=== PATIENT | female | born 1995 | race Caucasian/White ===

== ENCOUNTER 2018-08-26 21:16 | Emergency (ER) | payer OTHER ==
[2018-08-26] MEDS ORDERED: HALOPERIDOL LACT 5 MG/ML INJ ONE (21:19)
--- NOTE | 2018-08-26 21:24 | EDPHY ---
H & P Source: Patient Exam Limitations: No limitations - Medical/Surgical History Hx Asthma: No Hx Chronic Respiratory Disease: No Hx Diabetes: No Hx Cardiac Disease: No Hx Renal Disease: No Hx Cirrhosis: No Hx Alcoholism: No Hx HIV/AIDS: No Hx Splenectomy or Spleen Trauma: No Other PMH: DENIES - Family History Significant Family History: No pertinent family hx - Social History Smoking Status: Never smoked Alcohol Use: Heavy Time Seen by Provider: 08/26/18 21:19 HPI/ROS: CHIEF COMPLAINT: Walking into traffic HISTORY OF PRESENT ILLNESS: The patient is a 22-year-old female whose friends called police because she was trying to walk into traffic in an effort to kill herself. They report that she has done this before. She has been drinking heavily tonight. We do not know any other past medical history at this point. Severity: Severe Modifying factors: Alcohol REVIEW OF SYSTEMS: Unable to answer questions appropriately EXAM: GENERAL: Screaming, combative, not cooperative HEAD: Atraumatic, normocephalic. EYES: Pupils equal round and reactive to light, extraocular movements intact, sclera anicteric, conjunctiva are normal. ENT: TMs normal, nares patent, oropharynx clear without exudates. Moist mucous membranes. NECK: Normal range of motion, supple without lymphadenopathy or JVD. LUNGS: Breath sounds clear to auscultation bilaterally and equal. No wheezes rales or rhonchi. HEART: Normal pulses. ABDOMEN: Soft, nontender, normoactive bowel sounds. No guarding, no rebound. No masses appreciated. BACK: No CVA tenderness, no spinal tenderness, step-offs or deformities EXTREMITIES: Normal range of motion, no pitting or edema. No clubbing or cyanosis. NEUROLOGICAL: Moving all extremities, eating to be restrained PSYCH: Combative, screaming SKIN: Warm, dry, normal turgor, no visible rashes or lesions. (Adi Salazar) Constitutional: Initial Vital Signs Temperature (C) 36.9 C 08/26/18 21:37 Heart Rate 120 H 08/26/18 21:37 Respiratory Rate 20 08/26/18 21:37 Blood Pressure 109/66 08/26/18 21:37 O2 Sat (%) 94 08/26/18 21:37 O2 Delivery Mode Room Air Allergies/Adverse Reactions: No Known Allergies Allergy (Unverified 09/28/16 22:42) Home Medications: Medication Instructions Recorded NK [No Known Home Meds] 09/28/16 Medical Decision Making ED Course/Re-evaluation: 9:40 p.m. the patient was given Haldol and is now sleeping comfortably. (Adi Salazar) 0637: No acute events overnight. Patient has been sleeping. Needs mental health evaluation. (Hu Sanches) 3:00 p.m.-I assumed care of this patient at shift change. She presents with suicidal ideation and the plan is for her to go to [facility]. (Alexandria Garcia) Other Provider: Assumed care of the patient from Dr. Sanches at 7:15 a.m.. Patient is medically clear and awaiting evaluation. Patient seen and evaluated by mental health. They are seeking placement. Advised by [facility] at 3:30 p.m. They are hopeful the patient can be placed [facility]. Patient's care will be assumed by Dr. Alexandria Garcia at 4:00 p.m. Advised by that accepting physician has been identified at [facility]. Transfer paperwork signed by myself. (Angie Palma) - Data Points Laboratory Results: Laboratory Results 08/26/18 22:30 08/26/18 22:30 Medications Given: Discontinued Medications Haloperidol Lactate (Haldol Injection) 10 mg IM EDNOW ONE Stop: 08/26/18 23:04 Last Admin: 08/26/18 21:15 Dose: 10 mg Departure - Departure Disposition: Other Psych, Not Juan C Clinical Impression: Suicidal ideation Condition: Fair Referrals: Patient,NotPresent [Primary Care Provider] - As per Instructions
[2018-08-26 22:44] LABS: PLATELET COUNT 231 10^3/uL (150-400)
[2018-08-26] MEDS ORDERED: HALOPERIDOL LACT 5 MG/ML INJ IM ONE (23:03)
--- NOTE | 2018-08-27 14:04 | ASMTTLCEVL ---
TLC Evaluation - Basic Information Evaluation Start Date and 08/27/2018 12:50 PM Time Hospital Status Answers: M1 Hold 72-hr M1 Hold Start Date 08/26/2018 08:40 PM and Time Patient statement Notes: "I don't remember". Narrative Notes: Pt is a 22 y/o, female college student brought in on an M1 hold. Per M1, "pt was attempting to jump out into traffic to kill herself. Pt's friends were struggling with her holding her out of traffic until officers arrived. Pt did not say anything about the incident. Pt continuously fought and struggled with officers. With the clinician Pt presented with a flat affect and an overly compliant and cooperative behavior. Pt responded to all questions in a linear and logical manner, but was vague and guarded. Her last memory of yesterday was that she was in a good mood, had 4 drinks and was on her way to the football game with friends. She describes herself as having depression, "it comes and goes". It appears that this depression may extend back to middle school, when she began to cut and went to family therapy, however she was unwilling to give any details of that time. When asked abou present triggers she recalls a year of large stressors. Pt's father, who lives in [place] was diagnosed with Lupus last year; he has had 2 heart surgeries. He owns a business and there have been financial consequences to his illness. Pt's grandmother who was paying her tuition, stopped contributing this past November; pt stated that she didn't know why. This past January she and several friends at her sorority were "turned in" for drinking. There were multiple consequences and the remainder of her time there was unpleasant with her believing people were judging her behaviors. This summer, pt was drunk and in the car with her mother, when she tried to jump out attempting suicide.Pt now has a job and kath extra commitment and her lessening of free time is stressful. Pt describes herself as sleeping 8 ours a night and of having a small appetite, "I've lost weight over the last month". She is attending her classes and turning in assignments on time, but it "is probablly not my best work". Overall she is enjoying things less than she has in the past, has less energy and feels less worthwhile. When asked if she could be safe if sent home today, "probablly". She denied having a plan. She is anxious about a test on Wednesday and hopes to go home soon so that she can begin studying. Diagnosis History Notes: Pt believes she might have been diagnosed with anxiety in the past. Prior suicide attempts Notes: Pt reported trying to jump out of the car this past April, while her mother was driving. Her friends told the police last night that they have had to holdher from running into traffic previously. Prior hospitalizations Notes: Denies Treatment Responses Notes: Unknown. History of violence Notes: Denies Therapist: None Psychiatrist: None Medications (name, dosage, route, freq uency) Notes: Denies Allergies/Reaction Notes: None known Sleep Notes: 7 hours Appetite Notes: Pt reports a low appetite with weight loss this last month. Medical/Surgical history Notes: None known. Substance use history (frequency, intensity, his tory, duration) Notes: Heavey alcohol use. Pt's BAL was 243 upon admittance. Was here in 2016 with a high BAL. Pt minimizes use; she states "all college students drink". She reports last drinking about 2 weeks ago and having 2-3 drinks. Pt uses marijuana daily prior to sleeping. Family composition Notes: Pt has a mother and father who are and 2 siblings, one a year older and one a year younger. They all live in [place]. Need for family Answers: Yes participation in patient's care Family psychiatric/substance abuse history Notes: Pt believes her mother has had depression and over drinks alcohol. Developmental history Notes: Pt very guarded about her childhood. It is known that she struggled in middle school and began to "cut" then. Abuse concerns Answers: None Marital status/children Notes: Denies. Living situation Notes: Lives in an apt with 2 roomates. Sexual history/orientation Notes: Unknown Peer support/family strengths Notes: Friends. She shared that her parents become "disappointed not angry", but am unclear if she would choose to to go them for support now given her father's medical condition and both parent's financial stress. FOP is ill, while running his business; her mother lost her job and is now taking temp positions. Education level/history Notes: Pt is in her 3rd year at . She is studying integrative psychology. Work history Notes: Pt just began to work at [employer] in [place]. Notes: Denies. Legal Notes: Ticket for drinking last January. Faith/Spiritual Notes: Unknown. Leisure Notes: Netflix. Collateral Notes: None Patient's strengths Answers: Intelligent (Please select at least TWO strengths): Responsible/Dependable [facility] Evaluation - Mental Status Exam Appearance: Answers: Appropriate Disheveled Eye Contact: Answers: Good/Direct Mood: Answers: Depressed Affect: Answers: Flat Guarded Behavior: Answers: Appropriate Cooperative Guarded Speech: Answers: Relevant Logical Clear Coherent Thought Process: Answers: Organized Oriented Alert Insight: Answers: Poor Judgement: Answers: Poor Depression Answers: Diminished Interest Signs/Symptoms: Diminished Pleasure Flat Affect Sad Mood Worthlessness Hallucinations: Answers: None Current Stage of Change Answers: Precontemplation Pt reported to have Answers: Yes suicidal/self-injuring ideation/behavior? Pt reported to be making Answers: Yes suicidal/self-injuring threats? Pt reported to have Answers: No aggression/assault ideation/behavior? Pt reported to be making Answers: No aggression/assault threats? Pt exhibits inability to Answers: No care for self/grave disability? Ideation/behavior is Answers: Yes chronic? Patient has a specific Answers: No plan? Ideation involves Answers: Yes serious/lethal intent? Ideation has Answers: No delusional/hallucinatory content? History of Answers: Yes suicidal/self-injuring ideation, behavior, or threats? History of Answers: No aggressive/assaultive ideation, behavior, or threats? History of serious Answers: No physical harm to self/others while in treatment setting? [facility] Evaluation - Suicide/Homicide Risk Suicide Risk Factors: Answers: Alcohol/Heavy Drug Use Financial Difficulties Flat Affect Prior Suicide Attempt(s) Other Notes: Father ill Homicide/violence risk Answers: None factors: Current Suicidal Answers: Yes Ideation? Current Suicide Ideation "On and off" Frequency: Current Suicidal Ideation Answers: Yes in the Past 48 Hours? Current Suicidal Ideation Answers: Yes in the Past Month? Current Suicidal Answers: No Ideation, Worst Ever? Suicide Internal Answers: Absence of Psychosis Protective Factors: Suicide External Answers: Social Support Protective Factors: Ranking of patient's Answers: Severe suicidal risk: Ranking of patient's Answers: Low homicidal risk: [facility] Evaluation - Wrap-up BDI Total Score: 12 BDI Question #2 Score: 1 BDI Question #9 Score: 1 BSS Total Score: 5 AXIS I Diagnosis (include DSM-V and ICD-10 codes), must also be entered in [employer], which is the source of truth. Notes: Unspecified Depressive Disorder 311 (F32.9) Alcohol Use Disorder, severe 303.90 (F10.20) Evaluation End Date and 08/27/2018 01:40 PM Time (HH:MM): Date Signed: 08/27/2018 02:03 PM Electronically Signed By:Silvia Upton
--- NOTE | 2018-08-27 16:29 | ASMTTCLDSP ---
TLC Discharge Disposition Disposition: Answers: Transfer Disposition Notes: Notes: In consultation with [facility] ED physician, Angie Blanco MD and on-call psychiatrist, Monique Ann MD, both concurred that pt appears to meet 27-65 criteria requiring psychiatric hospitalization as pt appears to be an imminent risk of harm to self due to a mental illness condition. Type of Hold: Answers: M1/72-hour Hold Hold initiated by: Answers: Police For Transfers, Accepting [facility] Facility: For Transfers, Accepting Dr. Cunningham Psychiatrist: Date Signed: 08/27/2018 04:28 PM Electronically Signed By:Preet Moran
[2018-08-27 18:41] VITALS: BP 122/69
== END 2018-08-27 18:34 ==
LOC: EDUNIT#
DX: R45.851 Suicidal ideations (principal); F10.920 Alcohol use, unspecified with intoxication, uncomplicated; Y90.7 Blood alcohol level of 200-239 mg/100 ml; Z91.5 Personal history of self-harm
CPT/HCPCS: 80305; G0480; J1630